=== PATIENT | male | born 1965 | race Caucasian/White ===

== ENCOUNTER 2016-07-31 17:26 | Emergency (ER) | payer SELFPAY ==
[~2016-07-31] VITALS: Ht 172.7 cm; Wt 70.0 kg
[~2016-07-31 17:26] MED LIST: DIAZ2 PO; LORTA5 PO; METH750T2 PO; NAPR40TA PO; XANA1TAB6 PO
[2016-07-31 17:43] VITALS: BP 148/90; PULSE 85; RESP 16; TEMP 97.6; TEMP 99; O2SAT 93
[2016-07-31] MEDS ORDERED: PRIL20CA9 PO (17:49)
--- NOTE | 2016-07-31 18:42 | PD ---
HPI Chief Complaint: Altered Mental Status Time Seen by Provider: 18:31 Travel History International Travel<30 days: No Contact w/Intl Traveler<30days: No Traveled to known affect area: No History of Present Illness HPI This patient reportedly had a seizure at home. He doesn't recall any details. His girlfriend witnessed this and called paramedics. He reportedly had a seizure while on the bed and fell off the bed and hit his forehead on the ground. He does complain of headache of moderate severity. No neck symptoms. He denies ever having a seizure before. He denies drinking alcohol or drug use. Duration 1 hour. No alleviating factors. PFSH Past Medical History Medical other: Yes (GERD) Past Surgical History Appendectomy: Yes Social History Alcohol Use: Yes Tobacco Use: Yes Substance Use: No Allergies-Medications (Allergen,Severity, Reaction): Coded Allergies: Penicillin (Verified Allergy, Severe, UNKNOWN, 01/20/16) Reported Meds & Prescriptions Reported Meds & Active Scripts Active Reported Prilosec (Omeprazole) 20 Mg Cap 20 Mg PO DAILY Review of Systems General / Constitutional: No: Fever Eyes: No: Visual changes HENT: Positive: Headaches Cardiovascular: No: Chest Pain or Discomfort Respiratory: No: Shortness of Breath Gastrointestinal: No: Abdominal Pain Genitourinary: No: Dysuria Musculoskeletal: No: Pain Skin: No Rash Neurologic: Positive: Headache, No: Weakness Psychiatric: No: Depression Endocrine: No: Polydipsia Hematologic/Lymphatic: No: Easy Bruising Physical Exam Narrative GENERAL: Well-nourished, well-developed patient in no apparent distress. SKIN: Focused skin assessment reveals no rash and nodules. Skin is Warm and dry. HEAD: Some tenderness to the forehead with a shallow abrasion. Normocephalic. EYES: Pupils equal and round. No scleral icterus. No injection or drainage. ENT: No nasal bleeding or discharge. Mucous membranes pink and moist. NECK: Trachea midline. No JVD. No midline tenderness CARDIOVASCULAR: Regular rate and rhythm. No murmur appreciated. RESPIRATORY: No accessory muscle use. Clear to auscultation. Breath sounds equal bilaterally. GASTROINTESTINAL: Abdomen soft, non-tender, nondistended. Hepatic and splenic margins not palpable. MUSCULOSKELETAL: No obvious deformities. No clubbing. No cyanosis. No edema. NEUROLOGICAL: Awake and alert. No obvious cranial nerve deficits. Motor grossly within normal limits. Normal speech. PSYCHIATRIC: Appropriate mood and affect; insight and judgment seems a bit reduced . Data Data Last Documented VS Vital Signs Date Time Temp Pulse Resp B/P Pulse Ox O2 Delivery O2 Flow Rate FiO2 07/31/16 17:46 17 94 Room Air 07/31/16 17:43 99.0 85 148/90 MDM Medical Decision Making Medical Screen Exam Complete: Yes Emergency Medical Condition: Yes Medical Record Reviewed: Yes Differential Diagnosis New-onset seizure, alcohol withdrawal, tremor, panic attack Narrative Course I have reviewed the patient's electronic medical record. Patient was here 2014 with alcohol intoxication and intracranial hemorrhage Unclear if he had a seizure not. The person who witnessed this event did not arrive. Patient this time feels well other than mild to moderate frontal headache. Since he had an injury in that region I've ordered brain CT Will have IV placement and labs drawn Would not recommend seizure medications based on this vague history Case will be checked out to Dr. Mcdonald to assist with disposition after workup complete. Nilesh Alcantara MD Jul 31, 2016 18:42
[2016-07-31 18:57] VITALS: BP 160/101; PULSE 114; RESP 18; O2SAT 97
[2016-07-31 19:19] LABS: AUTOMATED NEUTROPHIL # 4.3 TH/MM3 (1.8-7.7); BASOPHIL % 0.2 % (0.0-2.0); EOSINOPHIL # 0.1 TH/MM3 (0-0.4); EOSINOPHIL % 1.4 % (0.0-4.0); HEMATOCRIT 43.1 % (39.0-51.0); HEMO FLAGS DIFF FINAL; LYMPH % 15.1 % (9.0-44.0); LYMPHOCYTE # 0.8 TH/MM3 (1.0-4.8); MEAN CELL VOLUME 91.3 FL (80.0-100.0); MEAN CORPUSCULAR HGB CONC 32.8 % (32.0-36.0); MONO % 5.5 % (0.0-8.0); NEUT % 77.8 % (16.0-70.0); PLATELET COUNT 176 TH/MM3 (150-450); RED BLOOD COUNT 4.72 MIL/MM3 (4.50-5.90); RED CELL DISTRIBUTION WIDTH 18.2 % (11.6-17.2); WHITE BLOOD COUNT 5.6 TH/MM3 (4.0-11.0)
--- NOTE | 2016-07-31 19:21 | RADRPT ---
EXAM DATE/TIME: 07/31/2016 19:11 [facility] COMPARISON: CT BRAIN W/O CONTRAST, June 24, 2014, 14:17. INDICATIONS : Trauma, fall. Abrasion to right forehead. RADIATION DOSE: 56.35 CTDIvol (mGy) MEDICAL HISTORY : Gastroesophageal reflux disease. SURGICAL HISTORY : Appendectomy. ENCOUNTER: Initial ACUITY: 1 day PAIN SCALE: 3/10 LOCATION: cranial TECHNIQUE: Multiple contiguous axial images were obtained of the head. Using automated exposure control and adj ustment of the mA and/or kV according to patient size, radiation dose was kept as low as reasonably a chievable to obtain optimal diagnostic quality images. FINDINGS: There is no evidence for intracranial hemorrhage, mass effect, mass lesions, edema, or extra-axial fl uid collections. The visualized bony structures appear intact. The ventricles are normal size for t he patient's age. There are no signs of acute infarction for technique. CONCLUSION: Unremarkable study. Valeriano Hernandez MD on July 31, 2016 at 19:17 Board Certified Radiologist. This report was verified electronically.
[2016-07-31 19:44] LABS: ANION GAP 12 MEQ/L (5-15); BICARBONATE 23.7 MEQ/L (21.0-32.0); BLOOD UREA NITROGEN 14 MG/DL (7-18); CHLORIDE 106 MEQ/L (98-107); GLOMERULAR FILTRATION RATE 62 ML/MIN (>89); POTASSIUM 3.9 MEQ/L (3.5-5.1); SODIUM (NA) 142 MEQ/L (136-145)
--- NOTE | 2016-07-31 20:07 | PD ---
Physical Exam Date Seen by Provider: Jul 31, 2016 Time Seen by Provider: 19:00 Narrative Patient signed out to me at [address] Jane, please see his note for further details. He is awaiting lab work and CAT scan for clearance. Questionable seizure. Laboratory Tests Test 07/31/16 18:30 Red Cell Distribution Width 18.2 % (11.6-17.2) Neutrophils (%) (Auto) 77.8 % (16.0-70.0) Lymphocytes # (Auto) 0.8 TH/MM3 (1.0-4.8) Estimat Glomerular Filtration 62 ML/MIN (>89) Rate Random Glucose 126 MG/DL (74-106) Last [address] 07/31/16 0000 Signed Impressions: Service Date/Time: Sunday, July 31, 2016 19:11 - CONCLUSION: Unremarkable study. Valeriano Hernandez MD EKG shows NSR, no ST elevation or depression, and no arrhythmias. No significant T-wave inversions. On further questioning, patient is now awake and oriented at 8 PM after workup is done. Workup did not show significant metabolic issues and CAT scan of the brain was unremarkable. Patient states that he has been feeling well over the last day or 2, has had food poisoning, and has been going back in 4 to the bathroom and he thinks he may have gotten up and had a syncopal episode when he went to the bathroom today. He denies any other injuries. Vital signs are stable the ER. I suspect underlying orthostatic hypotension considered history. At this point, my plan would be to release him with follow-up to primary care physician. Return for any worsening in symptoms as needed. The plan was discussed with him and he states understanding. Data Data Last Documented VS Vital Signs Date Time Temp Pulse Resp B/P Pulse Ox O2 Delivery O2 Flow Rate FiO2 07/31/16 18:57 114 18 160/101 97 Room Air 07/31/16 17:43 99.0 Orders Iv Access Insert/Monitor (07/31/16 18:37) Complete Blood Count With Diff (07/31/16 18:37) Basic Metabolic Panel (Bmp) (07/31/16 18:37) Ct Brain W/O Iv Contrast(Rout) (07/31/16 ) Alcohol (Ethanol) (07/31/16 18:37) Electrocardiogram (07/31/16 20:15) Labs Laboratory Tests Test 07/31/16 18:30 White Blood Count 5.6 TH/MM3 Red Blood Count 4.72 MIL/MM3 Hemoglobin 14.2 GM/DL Hematocrit 43.1 % Mean Corpuscular Volume 91.3 FL Mean Corpuscular Hemoglobin 30.0 PG Mean Corpuscular Hemoglobin 32.8 % Concent Red Cell Distribution Width 18.2 % Platelet Count 176 TH/MM3 Mean Platelet Volume 8.4 FL Neutrophils (%) (Auto) 77.8 % Lymphocytes (%) (Auto) 15.1 % Monocytes (%) (Auto) 5.5 % Eosinophils (%) (Auto) 1.4 % Basophils (%) (Auto) 0.2 % Neutrophils # (Auto) 4.3 TH/MM3 Lymphocytes # (Auto) 0.8 TH/MM3 Monocytes # (Auto) 0.3 TH/MM3 Eosinophils # (Auto) 0.1 TH/MM3 Basophils # (Auto) 0.0 TH/MM3 CBC Comment DIFF FINAL Differential Comment Sodium Level 142 MEQ/L Potassium Level 3.9 MEQ/L Chloride Level 106 MEQ/L Carbon Dioxide Level 23.7 MEQ/L Anion Gap 12 MEQ/L Blood Urea Nitrogen 14 MG/DL Creatinine 1.25 MG/DL Estimat Glomerular Filtration 62 ML/MIN Rate Random Glucose 126 MG/DL Calcium Level 9.1 MG/DL Ethyl Alcohol Level LESS THAN 3 MG/DL [facility] Medical Record Reviewed: Yes Supervised Visit with SHERRY: No Diagnosis Primary Impression: Syncope Disposition: 01 DISCHARGE HOME Condition: Stable Raul Murry MD Jul 31, 2016 20:07
--- NOTE | 2016-08-01 22:55 | EKG ---
Date Performed: 07/31/2016 Time Performed: 20:18:41 PTAGE: 50 years EKG: Sinus rhythm NONSPECIFIC T-WAVE ABNORMALITY BORDERLINE ECG PREVIOUS TRACING : 06/23/2014 05.06 Compared to the previous tracing, T wave abnormalities are more prominent DOCTOR: Josue Jeffrey Interpretating Date/Time 08/01/2016 22:53:49
== END 2016-07-31 20:24 | disposition home or self-care (01) ==
LOC: NEPC 17:26
DX: R55 Syncope and collapse (principal); W06.XXXA Fall from bed, initial encounter
CPT/HCPCS: 70450; 80048; 80307; 85025; 93005